=== PATIENT | male | born 1980 | race Caucasian/White ===

== ENCOUNTER 2023-11-15 11:25 | Emergency (ER) | payer MEDICAID, OTHER ==
[~2023-11-15] VITALS: Ht 177.8 cm; Wt 112.3 kg
[2023-11-15] MEDS: NICOTINE 21MG/24HR 1 EA TRANSDERMAL TD ONE (12:48)
[2023-11-15] MEDS ORDERED: ARIP1TAB6 (15:04)
[2023-11-15] MEDS ORDERED: AMIT75TA (15:04)
[2023-11-15] MEDS ORDERED: OMEP-173 (15:04)
[2023-11-15] MEDS ORDERED: FLUO40CA (15:04)
[2023-11-15] MEDS ORDERED: GABA-282 (15:04)
[2023-11-15] MEDS ORDERED: DEXT1TAB19 (15:04)
[2023-11-15] MEDS ORDERED: BUPR75TA5 (15:04)
[2023-11-15] MEDS ORDERED: FINA5TAB2 (15:04)
[2023-11-15] MEDS ORDERED: ESTR1TAB (15:04)
[2023-11-15] MEDS ORDERED: SPIR100T3 (15:04)
[2023-11-15] MEDS ORDERED: FLUO20CA22 (15:04)
[2023-11-15] MEDS ORDERED: HYDR50TA70 (15:04)
[2023-11-15] MEDS ORDERED: METH-1165 (15:04)
[2023-11-15] MEDS ORDERED: UBRO100T PO (15:04)
[2023-11-15] MEDS ORDERED: NICO2GUM41 (15:04)
[2023-11-15] MEDS ORDERED: ASPI81CH33 (15:04)
[2023-11-15] MEDS ORDERED: PRAZ5CAP (15:04)
[2023-11-15] MEDS ORDERED: ACET-841 PO (15:11)
[2023-11-15 17:00] VITALS: BP 134/77; TEMP 98.1; O2SAT 97
== END 2023-11-15 17:54 | disposition home or self-care (01) ==
LOC: M ED 11:25
DX: F43.0 Acute stress reaction (principal); F32.A Depression, unspecified; F31.9 Bipolar disorder, unspecified; I10 Essential (primary) hypertension; Z88.0 Allergy status to penicillin; Z88.8 Allergy status to other drugs, medicaments and biological substances; Z88.7 Allergy status to serum and vaccine; Z79.1 Long term (current) use of non-steroidal anti-inflammatories (NSAID); Z79.899 Other long term (current) drug therapy